=== PATIENT | male | born 1950 | race Caucasian/White ===

== ENCOUNTER → 2017-08-27 | Outpatient (CLI) | payer MEDICARE | LOC: RAD 14:36 | PROVIDERS: ATTEND Family Medicine Adult Medicine | DX: I87.332 Chronic venous hypertension (idiopathic) with ulcer and inflammation of left lower extremity (principal); L97.822 Non-pressure chronic ulcer of other part of left lower leg with fat layer exposed; R60.0 Localized edema | CPT/HCPCS: 93970 ==

== ENCOUNTER 2017-09-18 11:51 | Outpatient (RCR) | payer MEDICARE ==
[~2017-09-18 11:51] MED LIST: LIDOCAINE VISC 2% SOLN 15 ML UDC ONE; MINERAL OIL/PETROLAT/GLYCERI 6OZ BTL ONE
[2017-09-18] MEDS ORDERED: LIDOCAINE VISC 2% SOLN 15 ML UDC ONE (15:27)
== END 2017-09-19 ==
LOC: WCC 11:51
PROVIDERS: ATTEND Family Medicine Adult Medicine
DX: E11.65 Type 2 diabetes mellitus with hyperglycemia (principal); I82.412 Acute embolism and thrombosis of left femoral vein; I87.332 Chronic venous hypertension (idiopathic) with ulcer and inflammation of left lower extremity; L97.822 Non-pressure chronic ulcer of other part of left lower leg with fat layer exposed; L03.116 Cellulitis of left lower limb; I83.12 Varicose veins of left lower extremity with inflammation; R60.0 Localized edema; I87.2 Venous insufficiency (chronic) (peripheral); I10 Essential (primary) hypertension; B96.89 Other specified bacterial agents as the cause of diseases classified elsewhere
CPT/HCPCS: 36415; 82948; 87071; 87075; 87205

== ENCOUNTER 2017-10-09 11:05 | Outpatient (RCR) | payer MEDICARE ==
[2017-10-09] MEDS ORDERED: LIDOCAINE VISC 2% SOLN 15 ML UDC ONE (13:12)
[2017-10-09] MEDS ORDERED: MINERAL OIL/PETROLAT/GLYCERI 6OZ BTL ONE (13:12)
== END 2017-10-20 ==
LOC: WCC 11:05
PROVIDERS: ATTEND Family Medicine Adult Medicine
DX: E11.65 Type 2 diabetes mellitus with hyperglycemia (principal); I82.412 Acute embolism and thrombosis of left femoral vein; L97.822 Non-pressure chronic ulcer of other part of left lower leg with fat layer exposed; I87.332 Chronic venous hypertension (idiopathic) with ulcer and inflammation of left lower extremity; R60.0 Localized edema; I87.2 Venous insufficiency (chronic) (peripheral); I10 Essential (primary) hypertension; X58.XXXA Exposure to other specified factors, initial encounter
CPT/HCPCS: 36415; 82948

== ENCOUNTER 2017-10-25 12:49 | Outpatient (RCR) | payer MEDICARE ==
[2017-10-25] MEDS ORDERED: MINERAL OIL/PETROLAT/GLYCERI 6OZ BTL ONE (18:00)
== END 2017-10-25 12:50 | disposition home or self-care (01) ==
LOC: WCC 12:49
PROVIDERS: ATTEND Family Medicine Adult Medicine
DX: E11.65 Type 2 diabetes mellitus with hyperglycemia (principal); I10 Essential (primary) hypertension; I82.412 Acute embolism and thrombosis of left femoral vein; I87.2 Venous insufficiency (chronic) (peripheral); I87.332 Chronic venous hypertension (idiopathic) with ulcer and inflammation of left lower extremity; L97.822 Non-pressure chronic ulcer of other part of left lower leg with fat layer exposed; R60.0 Localized edema; X58.XXXA Exposure to other specified factors, initial encounter